=== PATIENT | female | born 1955 | race American Indian/Alaskan Native ===

== ENCOUNTER 2017-05-10 10:13 | Outpatient (CLI) | payer OTHER ==
--- NOTE | 2017-05-10 13:38 | Mammography Report ---
BILATERAL DIGITAL SCREENING MAMMOGRAM with CAD: 05/10/17 10:13:00 CLINICAL: Routine screening. COMPARISON:None. A previous [place] mammogram is unavailable. FINDINGS: The breasts are heterogeneously dense, which may obscure small masses. No mass, architectural distortion or suspicious calcifications. IMPRESSION: No mammographic evidence of malignancy. BI-RADS CATEGORY: 1 - - Negative RECOMMENDATION: Routine mammographic screening in one year. COMMENT: Patient follow-up letters are generated by our [employer] application.
== END 2017-05-10 10:14 | disposition home or self-care (01) ==
LOC: MAMMO 10:13
PROVIDERS: ATTEND Family Medicine
DX: Z12.31 Encounter for screening mammogram for malignant neoplasm of breast (principal)
CPT/HCPCS: 77067

== ENCOUNTER 2017-08-01 10:13 | Day surgery (SDC) | payer OTHER ==
[2017-08-01] MEDS ORDERED: NACL 0.9% 1000 ML 1,000 ML ONE (10:59)
[2017-08-01] MEDS ORDERED: NACL 0.9% 1000 ML 1,000 ML IV SCH (11:39)
--- NOTE | 2017-08-01 12:07 | Anesthesia Day of Surgery ---
Anesthesia Day of Surgery - Day of Surgery Patient Examined: Yes Patient H&P Reviewed: Yes Patient is NPO: Yes
--- NOTE | 2017-08-01 12:07 | Anesthesia Consultation ---
Anesthesia Consult and Med Hx Date of service: 08/01/17 - Airway Anesthetic Teeth Evaluation: Good ROM Head & Neck: Adequate Mental/Hyoid Distance: Adequate Mallampati Class: Class II Intubation Access Assessment: Probably Good - Pre-Operative Health Status ASA Pre-Surgery Classification: ASA1 Proposed Anesthetic Plan: MAC - Other Systems Hx Cancer: No
[2017-08-01] MEDS ORDERED: DIPRIVAN 10 MG/ML IV ONE (12:25)
[2017-08-01] MEDS ORDERED: WATER FOR IRRIG STERILE IR ONE (12:47)
[2017-08-01] MEDS ORDERED: WATER FOR IRRIG STERILE ONE (12:47)
[2017-08-01] MEDS ORDERED: XYLOCAINE MPF 2% ONE (13:00)
--- NOTE | 2017-08-01 13:02 | Operative Report ---
Operative Report Operative Report: Date of procedure: 08/01/2017 Procedure: Colonoscopy with Snare polypectomy, and Submucosal injection. Attending physician: Gumaro Monteiro MD Pitch Gatherer: Gumaro Monteiro MD Indication: Patient is a 62-year-old female who presents for screening colonoscopy. This colonoscopy serves to evaluate patient so that treatment may be directed based on the findings. Consent: Informed consent was obtained after advising the patient and family regarding nature of this procedure, its indications, potential benefits as well as possible complications including but not limited to bleeding perforation and adverse reaction to medication, infection as well as other cardiopulmonary complications. An informed written and verbal consent was then obtained after due opportunity was provided for questions and answers. Monitoring: Patient was monitored continuously with pulse oximetry and electrocardiographic recordings as well as blood pressure recordings. Vital signs remained stable throughout this procedure with no untoward events. Preoperative assessment: Patient was assessed immediately prior to this procedure for capacity to tolerate monitored anesthesia care and moderate sedation as well as general anesthesia. Patient's ASA classification is 2, Mallampati class is 2, Hyomental distance is 3. Instrument: UB.n video colonoscope Medications: Propofol given intravenously in divided doses. For details please refer to anesthesia records. Description of procedure: Patient was placed in the left lateral decubitus position after achieving sedation, a digital rectal examination was performed following which the colonoscope was introduced into the anal verge and advanced to the cecum which was identified by the cecal valve, the appendiceal orifice, as well as by the cecal strap and direct transillumination. The colonoscope was subsequently withdrawn with careful inspection of all mucosal surfaces. Patient tolerated this procedure well and was subsequently taken to the recovery room. The following findings were noted. Findings: Patient had a broad-based sessile 8 mm sigmoid colon polyp. This was elevated with submucosal injection of saline and then removed with a snare electrocautery. The rest of the colon to the cecum was normal. On the retroflex view at the anal verge, patient had internal hemorrhoids. Impression: Sigmoid colon polyp status post submucosal injection and removal with snare polypectomy . Internal hemorrhoids. Plan: Follow pathology report. High-fiber diet. Repeat colonoscopy in 5 years if polyp is adenomatous.
--- NOTE | 2017-08-01 13:03 | Discharge Summary ---
Short Stay Discharge Plan Activity: advance as tolerated Weight Bearing Status: Weight Bear as Tolerated Diet: regular Follow up with: ERIS MORA MD [Primary Care Provider] - 7 Days
--- NOTE | 2017-08-01 13:19 | Post Anesthesia Evaluation ---
- Post Anesthesia Evaluation Patient Participated: Yes Airway Patent: Yes Nausea/Vomiting: No Temp > 96.8F: Yes Pain Manageable: Yes Adequeate Hydration: Yes Anesthesia Complications: No
[2017-08-01 13:37] VITALS: BP 128/74
== END 2017-08-01 13:40 | disposition home or self-care (01) ==
LOC: GIO 10:13
PROVIDERS: ATTEND Internal Medicine Gastroenterology
DX: Z12.11 Encounter for screening for malignant neoplasm of colon (principal); D12.5 Benign neoplasm of sigmoid colon; K64.8 Other hemorrhoids
CPT/HCPCS: 45381; 45385; 88305; J2704; J7030